=== PATIENT | male | born 2000 | race Caucasian/White ===

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

== ENCOUNTER 2020-10-26 04:50 | Emergency (ER) | payer SELFPAY ==
[2020-10-26] MEDS ORDERED: fentaNYL 100 MCG/2 ML SDV ONE ×2 (05:06→05:23)
[2020-10-26] MEDS ORDERED: Midazolam 1 MG/ML 2 ML SDV ONE ×2 (05:06→05:23)
[2020-10-26] MEDS ORDERED: Ondansetron 4 MG/2 ML SDV IVPUSH ONE (05:07)
[2020-10-26] MEDS ORDERED: Ondansetron 4 MG/2 ML SDV ONE (05:08)
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
[2020-10-26 07:16] LABS: ANION GAP 20.5 mEq/L (7-13); CHLORIDE,CL 107 mmol/L (98-107); SODIUM,NA 145 mmol/L (136-145)
[2020-10-26 07:35] LABS: PTT,PARTIAL THROMBOPLSTIN TIME 21.5 SEC (22.0-34.0)
== END 2020-10-26 06:33 ==
LOC: DL.ED 04:50
DX: S01.83XA Puncture wound without foreign body of other part of head, initial encounter (principal); S02.609A Fracture of mandible, unspecified, initial encounter for closed fracture; S02.85XA Fracture of orbit, unspecified, initial encounter for closed fracture; S01.512A Laceration without foreign body of oral cavity, initial encounter; R00.0 Tachycardia, unspecified
CPT/HCPCS: 31500; 36415; 36430; 43752; 71045; 80053; 80305-QW; 80307; 81001; 85025; 85610; 85730; 86850; 86900; 86901; 86920; 86922; 99285-25; P9016